=== PATIENT | male | born 1940 | race Caucasian/White ===

== ENCOUNTER 2017-03-15 20:22 | Inpatient (IN) ==
[2017-03-15] MEDS ORDERED: Albuterol 2.5 MG/3 ML NEBULIZER IH ONE (20:30)
[2017-03-15] MEDS ORDERED: methylPREDNISolone 125 MG/2 ML VIAL IVP ONE (20:30)
[2017-03-15] MEDS ORDERED: 0.9 % Sodium Chloride 500 ML IVC ONE (20:30)
[2017-03-15] MEDS ORDERED: Ipratropium/Albuterol Neb 3 ML IH ONE (20:30)
--- NOTE | 2017-03-15 20:34 | Emergency Department Note ---
Disposition Clinical Impression: Pneumonia Qualifiers: Pneumonia type: due to unspecified organism Laterality: right Lung location: lower lobe of lung Qualified Code(s): J18.1 - Lobar pneumonia, unspecified organism Rhabdomyolysis Qualifiers: Rhabdomyolysis type: non-traumatic Qualified Code(s): M62.82 - Rhabdomyolysis Disposition: Admitted As Inpatient Condition: Good Referrals: NO,PCP [Primary Care Provider] - Forms: ED Satisfaction Letter Time of Disposition: 22:36 Altered Mental Status HPI - General Chief Complaint: ED Altered Mental Status Stated Complaint: AMS Time Seen by Provider: 03/15/17 20:30 Source: EMS Mode of arrival: EMS Limitations: altered mental status Nursing Notes Reviewed: Yes Vital Signs Reviewed: Yes - History of Present Illness HPI Narrative: 76-year-old male transported by EMS after being found on the floor of his house at home. They were toned out for an unresponsive patient. When they arrived they found him awake and responsive. His speech is difficult to understand. His who was intoxicated reported that his mental status was different than his baseline. She did not come with the squad. On arrival here the patient's speech is difficult to understand, he is alert, he does not appear to have specific complaint. MD complaint: altered mental status Onset (ago): unknown Timing confirmed by: spouse Pain Severity: unable - Related Data Home Medications Medication Instructions Recorded Confirmed Simvastatin [Zocor] 20 mg PO HS 10/22/15 11/11/15 Albuterol Sulfate [Albuterol 180 mcg IH Q6HR PRN 11/11/15 11/11/15 Inhaler] Fluticasone Propionate Nasal 2 spr NS DAILY PRN 11/11/15 11/11/15 [Flonase] Oxygen 2 l NS AD 11/11/15 11/11/15 Allergies Allergy/AdvReac Type Severity Reaction Status Date / Time No Known Allergies Allergy Verified 10/20/15 10:32 Limitations: ROS unobtainable due to patients medical condition Past Medical History - Past Medical History Medical history: Reports: COPD, hyperlipidemia Surgical history: Reports: other Psychiatric history: Reports: no psych history - Social History Smoking Status: Current every day smoker Smokeless Tobacco Status: No Alcohol use: Reports: occasionally Drug use: Reports: none Physical Exam - General Limitations: altered mental status General appearance: alert, in no apparent distress - Head Head exam: atraumatic, normocephalic - Eye Eye exam: Present: PERRL, EOMI. Absent: scleral icterus, conjunctival injection - ENT ENT exam: normal oropharynx, mucous membranes moist, TM's normal bilaterally - Neck Neck exam: Present: normal inspection, full ROM, trachea midline. Absent: lymphadenopathy - Chest Chest inspection: Present: normal inspection, symmetric chest wall rise - Respiratory Respiratory exam: Present: wheezes (Mild bilateral expiratory), other ( Decreased breath sounds in both bases). Absent: respiratory distress - Cardiovascular Cardiovascular exam: Present: regular rate, normal rhythm, normal heart sounds - Abdominal Exam Abdominal exam: Present: soft, tenderness, guarding. Absent: distention, rebound Abdominal tenderness: Present: diffuse, mild - Extremities Exam Extremities exam: Absent: tenderness, pedal edema - Neurological Exam Neurological exam: Present: alert, other (Orientation cannot be tested, and his speech is not understandable. He appears to remedies symmetrically) - Psychiatric Psychiatric exam: Present: flat affect - Skin Skin exam: Present: warm, dry, other (Poor skin turgor. There is some erythema over the lateral right knee. There is some erythema in his upper back and lower midline lumbar spine.) Course Vital Signs Temperature 100.6 F H 03/15/17 20:23 Pulse Rate 92 03/15/17 20:23 Respiratory Rate 18 03/15/17 20:23 Blood Pressure 137/80 03/15/17 20:23 O2 Sat by Pulse Oximetry 92 03/15/17 20:23 Temperature 99.9 F H 03/15/17 22:20 Pulse Rate 101 03/15/17 22:20 Respiratory Rate 24 03/15/17 22:20 Blood Pressure 102/65 03/15/17 22:20 O2 Sat by Pulse Oximetry 94 03/15/17 22:20 Oxygen Delivery Oxygen Delivery Nasal Cannula Altered Mental Status - MDM Narrative Medical decision making narrative: Differential includes but is not limited to dehydration, sepsis, UTI, pneumonia , CVA, electrolyte abnormality, subdural Radiographically as pneumonia. He has no acute intracranial abnormality. No acute intra-abdominal pathology. He has a fever and a mildly elevated white blood cell count. His lactic acid is not elevated. IV fluids were initiated. IV antibiotics were initiated. He also had a mild to moderate elevation of his CPK which is consistent with some early or mild rhabdomyolysis. His creatinine is normal. I spoke to the hospitalist shailesh admitted. - Lab Data Lab results reviewed: Yes I reviewed the patient's lab results. Result diagrams: 03/15/17 20:43 03/15/17 20:43 Lab Results 03/15/17 03/15/17 03/15/17 Range/Units 20:43 20:43 20:43 WBC 12.1 H (4.3-11.1) K/mcL RBC 4.64 (4.19-5.50) M/mcL Hgb 14.4 (12.9-16.9) g/dL Hct 41.7 (37.5-50.1) % MCV 89.9 (83.0-100.0) fL MCH 31.0 (28.0-33.3) pg MCHC 34.5 (31.6-35.5) g/dL RDW 12.8 (11.5-14.5) % Plt Count 209 (140-400) K/mcL MPV 9.6 (9.4-12.4) fL Immature Gran % 0.3 (0-4) % Seg Neutrophils % 85.7 % Lymphocytes % 4.9 % Monocytes % 8.9 % Eosinophils % 0.0 % Basophils % 0.2 % Neutrophils # 10.4 H (1.6-8.9) K/mcL Lymphocytes # 0.6 (0.6-4.6) K/mcL Monocytes # 1.1 (0.0-1.3) K/mcL Eosinophils # 0.0 (0.0-0.6) K/mcL Basophils # 0.0 (0.0-0.2) K/mcL PT 13.5 H (9.4-12.1) Seconds INR 1.2 VBG Lactic Acid (0.5-2.2) mmol/L Sodium 141 (136-145) mEq/L Potassium 3.9 (3.5-4.5) mEq/L Chloride 104 (98-109) mEq/L Carbon Dioxide 24 (19-29) mEq/L BUN 21 (8-26) mg/dL Creatinine 0.81 (0.72-1.25) mg/dL Est GFR ( Amer) > 60 (> 60) Est GFR (Non-Af Amer) > 60 (> 60) BUN/Creatinine Ratio 26 (6-26) Glucose 92 (70-99) mg/dL Calculated Osmolality 295 (280-300) Calcium 9.3 (8.6-10.8) mg/dL Total Bilirubin 0.9 (0.2-1.2) mg/dL AST 47 H (5-34) Units/L ALT 23 (0-55) Units/L Alkaline Phosphatase 125 (38-126) Units/L Creatine Kinase 830 H (30-200) Units/L Troponin I (0-0.03) ng/mL Serum Total Protein 6.8 (6.0-8.3) g/dL Albumin 3.9 (3.5-5.0) g/dL Globulin 2.9 (2.4-3.5) g/dL Albumin/Globulin Ratio 1.3 (1.1-2.2) Urine Color (Yellow) Urine Clarity (Clear) Urine pH (5.0-8.0) pH Units Ur Specific Warren (1.010-1.025) Urine Protein (Neg-Trace) mg/dL Urine Glucose (UA) (Normal) mg/dL Urine Ketones (Negative) mg/dL Urine Blood (Negative) Urine Nitrite (Negative) Urine Bilirubin (Negative) Urine Urobilinogen (Normal) mg/dL Ur Leukocyte Esterase (Negative) Urine Microscopic RBC (0-3) per hpf Urine Microscopic WBC Urine Mucus (Few) Ur Culture Indicated? (NO) 03/15/17 03/15/17 03/15/17 Range/Units 20:43 20:43 21:45 WBC (4.3-11.1) K/mcL RBC (4.19-5.50) M/mcL Hgb (12.9-16.9) g/dL Hct (37.5-50.1) % MCV (83.0-100.0) fL MCH (28.0-33.3) pg MCHC (31.6-35.5) g/dL RDW (11.5-14.5) % Plt Count (140-400) K/mcL MPV (9.4-12.4) fL Immature Gran % (0-4) % Seg Neutrophils % % Lymphocytes % % Monocytes % % Eosinophils % % Basophils % % Neutrophils # (1.6-8.9) K/mcL Lymphocytes # (0.6-4.6) K/mcL Monocytes # (0.0-1.3) K/mcL Eosinophils # (0.0-0.6) K/mcL Basophils # (0.0-0.2) K/mcL PT (9.4-12.1) Seconds INR VBG Lactic Acid 1.7 (0.5-2.2) mmol/L Sodium (136-145) mEq/L Potassium (3.5-4.5) mEq/L Chloride (98-109) mEq/L Carbon Dioxide (19-29) mEq/L BUN (8-26) mg/dL Creatinine (0.72-1.25) mg/dL Est GFR ( Amer) (> 60) Est GFR (Non-Af Amer) (> 60) BUN/Creatinine Ratio (6-26) Glucose (70-99) mg/dL Calculated Osmolality (280-300) Calcium (8.6-10.8) mg/dL Total Bilirubin (0.2-1.2) mg/dL AST (5-34) Units/L ALT (0-55) Units/L Alkaline Phosphatase (38-126) Units/L Creatine Kinase (30-200) Units/L Troponin I 0.02 (0-0.03) ng/mL Serum Total Protein (6.0-8.3) g/dL Albumin (3.5-5.0) g/dL Globulin (2.4-3.5) g/dL Albumin/Globulin Ratio (1.1-2.2) Urine Color Dark Yellow (Yellow) Urine Clarity Slightly Cloudy A (Clear) Urine pH 5.0 (5.0-8.0) pH Units Ur Specific Warren 1.025 (1.010-1.025) Urine Protein Negative (Neg-Trace) mg/dL Urine Glucose (UA) Normal (Normal) mg/dL Urine Ketones 15 H (Negative) mg/dL Urine Blood Trace-lysed H (Negative) Urine Nitrite Negative (Negative) Urine Bilirubin Small H (Negative) Urine Urobilinogen Normal (Normal) mg/dL Ur Leukocyte Esterase Negative (Negative) Urine Microscopic RBC 0-3 (0-3) per hpf Urine Microscopic WBC Test Not Performed Urine Mucus Moderate H (Few) Ur Culture Indicated? NO (NO) - Radiology Data Radiology results reviewed: Yes I reviewed the patient's radiology results. ITS Impressions Abdomen/Pelvis CT 03/15/17 20:30 IMPRESSION: 1. Right lung base opacities suspicious for pneumonia. 2. No acute findings are identified within the abdomen and pelvis. 3. Left inguinal hernia containing portion of sigmoid colon without bowel obstruction. 4. Emphysema. D/ : / 03/15/2017 22:27:49 Layo Cano MD / ana Interpreting Provider: Layo Cano MD Chest X-Ray 03/15/17 20:30 IMPRESSION: 1. Opacity in right lung base suspicious for pneumonia. 2. Hyperinflation suggestive of COPD. D/ / 03/15/2017 21:31:11 Layo Cano MD / ana Interpreting Provider: Layo Cano MD Head CT 03/15/17 20:30 IMPRESSION: 1. Limited study due to motion. No gross acute intracranial abnormality. 2. Chronic small vessel ischemic disease. D/ / 03/15/2017 22:24:37 Layo Cano MD / ana Interpreting Provider: Layo Cano MD - EKG Data EKG attestation: Yes I reviewed and interpreted this EKG. EKG results narrative: His tachycardia, rate 109, T-wave flattening inferior lateral, possible ischemia , severe artifact, rhythm strip shows a sinus rhythm with a rate of 109, IA interval 157 ms, QRS of 90 as interpreted by me. TPA Checklist - LKW: 3-4.5 hrs Add. Contraindications Patient/family understanding: The patient/family members have been counseled and understood the risk, benefit , and alternatives of treatment.
[2017-03-15 20:55] LABS: Basophils % 0.2 %; Hematocrit 41.7 % (37.5-50.1); Hemoglobin 14.4 g/dL (12.9-16.9); Immature Granulocytes % 0.3 % (0-4); Lymphocytes # 0.6 K/mcL (0.6-4.6); Lymphocytes % 4.9 %; Mean Corpuscular HGB Conc 34.5 g/dL (31.6-35.5); Mean Corpuscular Volume 89.9 fL (83.0-100.0); Mean Platelet Volume 9.6 fL (9.4-12.4); Monocytes # 1.1 K/mcL (0.0-1.3); Monocytes % 8.9 %; Neutrophils # 10.4 K/mcL (1.6-8.9); Platelet Count 209 K/mcL (140-400); Red Blood Count 4.64 M/mcL (4.19-5.50); Red Cell Distribution Width 12.8 % (11.5-14.5); Segmented Neutrophils % 85.7 %
[2017-03-15 20:56] LABS: INR 1.2; Prothrombin Time 13.5 Seconds (9.4-12.1)
[2017-03-15 21:09] LABS: Alanine Aminotransferase 23 Units/L (0-55); Albumin 3.9 g/dL (3.5-5.0); Albumin/Globulin Ratio 1.3 (1.1-2.2); Alkaline Phosphatase 125 Units/L (38-126); Aspartate Amino Transferase 47 Units/L (5-34); BUN/Creatinine Ratio 26 (6-26); Bilirubin,Total 0.9 mg/dL (0.2-1.2); Blood Urea Nitrogen 21 mg/dL (8-26); Calcium 9.3 mg/dL (8.6-10.8); Carbon Dioxide 24 mEq/L (19-29); Chloride 104 mEq/L (98-109); Creatine Kinase 830 Units/L (30-200); Globulin 2.9 g/dL (2.4-3.5); Glucose 92 mg/dL (70-99); Osmolality,Calculated 295 (280-300); Potassium 3.9 mEq/L (3.5-4.5); Sodium 141 mEq/L (136-145); Total Protein 6.8 g/dL (6.0-8.3); eGFR For African Americans > 60 (> 60); eGFR For Non-African Americans > 60 (> 60)
[2017-03-15] MEDS ORDERED: Azithromycin 500 MG in D5% in Water 250 ML IVPB ONE (21:40)
[2017-03-15 21:55] LABS: Bilirubin,Urine Small (Negative); Blood,Urine Trace-lysed (Negative); Clarity,Urine Slightly Cloudy (Clear); Color,Urine Dark Yellow (Yellow); Glucose,Urine (UA) Normal (Normal); Ketones,Urine 15 mg/dL (Negative); Leukocyte Esterase,Urine Negative (Negative); Nitrite,Urine Negative (Negative); Protein,Urine Negative (Neg-Trace); Specific Gravity,Urine 1.025 (1.010-1.025); Urobilinogen,Urine Normal (Normal)
[2017-03-15 22:02] LABS: Mucus,Urine Moderate (Few); RBC,Urine 0-3 per hpf (0-3)
[2017-03-16] MEDS ORDERED: Naloxone 0.4 MG/ML INJ IVP PRN (00:01)
[2017-03-16] MEDS: 0.9 % Sodium Chloride 1,000 ML IVC SCH ×2 (00:35→07:00)
[2017-03-16] MEDS ORDERED: Albuterol 2.5 MG/3 ML NEBULIZER IH PRN (03:14)
[2017-03-16 06:21] LABS: BUN/Creatinine Ratio 21 (6-26); Blood Urea Nitrogen 16 mg/dL (8-26); Calcium 8.5 mg/dL (8.6-10.8); Carbon Dioxide 21 mEq/L (19-29); Chloride 109 mEq/L (98-109); Glucose 148 mg/dL (70-99); Osmolality,Calculated 296 (280-300); Potassium 3.9 mEq/L (3.5-4.5); Sodium 141 mEq/L (136-145); eGFR For African Americans > 60 (> 60); eGFR For Non-African Americans > 60 (> 60)
[2017-03-16] MEDS: *HR* Enoxaparin 30 MG/0.3 ML SYRINGE SQ SCH (06:59)
--- NOTE | 2017-03-16 10:19 | Electrocardiograph Report ---
[address] [place], [place] [address] Test Date: 2017-03-15 Pat Name: Femi Ivory Department: 9201 Room: [facility] Gender: M Manager Talent: [id number] : 1940 Requested By: Titi Javier Order Number: [id number] Reading MD: Apolonia Lundberg Measurements Intervals Reynolds Rate: 109 P: 85 MD: 157 QRS: 56 QRSD: 92 T: 117 QT: 343 QTc: 407 Interpretive Statements SINUS TACHYCARDIA WITH OCCASIONAL SUPRAVENTRICULAR PREMATURE COMPLEXES POSSIBLE RIGHT VENTRICULAR CONDUCTION DELAY ST DEVIATION AND MODERATE T-WAVE ABNORMALITY, CONSIDER INFERIOR ISCHEMIA Electronically Signed On 03-16-2017 10:17:54 EDT by Apolonia Lundberg
--- NOTE | 2017-03-16 11:24 | Internal Med History&Physical ---
Date of Encounter: 03/16/17 Time of Encounter: 10:50 Assessment and Plan (1) Pneumonia Current visit: Yes Status: Acute He has been started on Rocephin and Zithromax. I have ordered lactobacillus. Further workup will be done as needed. Qualifiers: Pneumonia type: due to unspecified organism Laterality: right Lung location: lower lobe of lung Qualified Code(s): J18.1 - Lobar pneumonia, unspecified organism (2) COPD (chronic obstructive pulmonary disease) Current visit: No Status: Chronic Presumed. He reported he started smoking at age 15. He has oxygen at home. Qualifiers: COPD type: unspecified COPD Qualified Code(s): J44.9 - Chronic obstructive pulmonary disease, unspecified (3) Fall Current visit: Yes Status: Acute Suspect multifactorial etiology. He admits he drinks alcohol most days. Will order PT and OT evaluation. Check orthostatic vital signs in a.m. Qualifiers: Encounter type: initial encounter Qualified Code(s): W19.XXXA - Unspecified fall, initial encounter Internal Medicine - H&P: HPI Chief complaint: Fall, Altered mental status Admitted From: Home Plans for Post Hospital Care: Home History of present illness: Mr. Ivory is a 76 year old male who was brought by squad to emergency room after he was found on the floor of his house at home. His apparently called the squad after she noted his mental status was different from baseline. He is a very poor historian and cannot give any reliable history. He was evaluated in emergency room and noted to have speech difficult understand and right lower lobe pneumonia. He was admitted to [facility] floor for ongoing care needs. Past Med Surg Social Fam HX - Past Medical History Medical history: COPD, hyperlipidemia Psychiatric history: no psych history - Past Surgical History Surgical History: other - Social History Smoking Status: Current every day smoker Smokeless Tobacco Status: No Alcohol use: occasionally Drug use: none Internal Medicine - H&P: Meds Simvastatin [Zocor] 20 mg PO HS 10/22/15 [History] Albuterol Sulfate [Albuterol Inhaler] 180 mcg IH Q6HR PRN 11/11/15 [History] Fluticasone Propionate Nasal [Flonase] 2 spr NS DAILY PRN 11/11/15 [History] Oxygen 2 l NS AD 11/11/15 [History] Allergies No Known Allergies Allergy (Verified 10/20/15 10:32) All Systems PM: A 10-system review of systems was performed and is negative for pertinent findings except as documented above in the HPI. Review of systems: Unobtainable from the patient - Constitutional Vitals: Temp Pulse Resp BP Pulse Ox 98.1 F 71 18 109/66 93 03/16/17 06:44 03/16/17 06:44 03/16/17 06:44 03/16/17 06:44 03/16/17 06:44 Exam: Gen.: He is a well-developed well-nourished male lying in bed who appears in no acute distress at present time HEENT: Head is atraumatic and normocephalic. Eyes: EOMI. There is no scleral icterus. Mouth: Mucosa is moist. Neck: Supple and nontender. There is no thyromegaly or adenopathy noted. Heart: Regular without murmurs gallops or ectopics. Lungs: No wheezes or crackles are heard. He has egophony in the right lower lung and left mid and upper lung posteriorly Abdomen: Bowel sounds are present. The abdomen is firm and he does not allow deep palpation. There does not appear to be tenderness or guarding however. Extremities: There is no cyanosis edema or clubbing noted. Dorsalis pedis and posttibial pulses are 1-2 over 2 bilaterally. Neurologic: Mental status: He is awake but is unable to answer most questions reliably. Cranial nerves: Smile is symmetric. Forehead wrinkles bilaterally. Tongue protrudes midline. EOMI. Motor: There is no pronator drift. Cerebellar : He does not understand the command to do finger to nose testing. No further neurologic testing is attempted. Skin: Warm and dry Internal Med - H&P Results - Labs CBC & Chem 7: 03/15/17 20:43 03/16/17 05:52 Labs: BMP 03/16/17 05:52 Sodium 141 Potassium 3.9 Chloride 109 Carbon Dioxide 21 BUN 16 Creatinine 0.78 Glucose 148 H Calcium 8.5 L
[2017-03-16] MEDS: 0.45 % Sodium Chloride w/KCl 20 MEQ/1,000 ML MLS IVC SCH (11:39)
[2017-03-16] MEDS: Lactobacillus 1 EACH CAP.SPRINK PO SCH (23:03)
[2017-03-17] MEDS: 0.45 % Sodium Chloride w/KCl 20 MEQ/1,000 ML MLS IVC SCH (00:49)
[2017-03-17] MEDS: Azithromycin 500 MG in D5% in Water 250 ML IVPB SCH ×2 (01:30→23:21)
[2017-03-17] MEDS: *HR* Enoxaparin 30 MG/0.3 ML SYRINGE SQ SCH (05:59)
[2017-03-17 06:06] LABS: Basophils % 0.1 %; Hematocrit 40.2 % (37.5-50.1); Hemoglobin 13.4 g/dL (12.9-16.9); Immature Granulocytes % 0.4 % (0-4); Lymphocytes % 9.2 %; Mean Corpuscular HGB Conc 33.3 g/dL (31.6-35.5); Mean Corpuscular Hemoglobin 30.5 pg (28.0-33.3); Mean Corpuscular Volume 91.6 fL (83.0-100.0); Mean Platelet Volume 10.2 fL (9.4-12.4); Monocytes # 0.9 K/mcL (0.0-1.3); Neutrophils # 8.9 K/mcL (1.6-8.9); Platelet Count 168 K/mcL (140-400); Red Blood Count 4.39 M/mcL (4.19-5.50); Red Cell Distribution Width 13.1 % (11.5-14.5); Segmented Neutrophils % 82.3 %
[2017-03-17] MEDS: Lactobacillus 1 EACH CAP.SPRINK PO SCH ×2 (08:50→21:07)
--- NOTE | 2017-03-17 09:50 | Internal Med Progress Note ---
Date of Encounter: 03/17/17 Time of Encounter: 09:40 - Assessment and plan (1) Pneumonia Current Visit: Yes Status: Acute Assessment and plan: March 17. Continue Rocephin, Zithromax, and lactobacillus. Anticipate discharge home tomorrow. Qualifiers: Pneumonia type: due to unspecified organism Laterality: right Lung location: lower lobe of lung Qualified Code(s): J18.1 - Lobar pneumonia, unspecified organism (2) COPD (chronic obstructive pulmonary disease) Current Visit: No Status: Chronic Assessment and plan: March 17. Presumed. Continue treatment for pneumonia. He has home oxygen. Qualifiers: COPD type: unspecified COPD Qualified Code(s): J44.9 - Chronic obstructive pulmonary disease, unspecified (3) Fall Current Visit: Yes Status: Acute Assessment and plan: March 17. He admits to drinking up to a six-pack of beer daily. Continue therapy intervention. Orthostatic vital signs have not yet been recorded. Qualifiers: Encounter type: initial encounter Qualified Code(s): W19.XXXA - Unspecified fall, initial encounter - Subjective Interval history: March 17. He has no new complaints and feels better. - Constitutional Vitals: Temp Pulse Resp BP Pulse Ox 97.6 F 86 18 111/68 96 03/17/17 06:28 03/17/17 06:28 03/17/17 06:28 03/17/17 06:28 03/17/17 06:28 Exam: He has resting comfortably in bed. His conversation is more appropriate and speech is more understandable. Lungs show no wheezing. Extremities show no edema. I reviewed his medications and lab results. Internal Medicine: Result - Labs CBC & Chem 7: 03/17/17 05:45 03/16/17 05:52 Labs: Short CBC 03/17/17 Range/Units 05:45 WBC 10.8 (4.3-11.1) K/mcL Hgb 13.4 (12.9-16.9) g/dL Hct 40.2 (37.5-50.1) % Plt Count 168 (140-400) K/mcL Neutrophils # 8.9 (1.6-8.9) K/mcL - ABG Interpretation ABG results: PT/INR, D-dimer PT 13.5 Seconds (9.4-12.1) H 03/15/17 20:43 Consult Discharge Plan - Plan Referrals: NO,PCP [Primary Care Provider] - 1 week
--- NOTE | 2017-03-17 15:21 | Electrocardiograph Report ---
[place] [id number] Test Date: 2017-03-15 Pat Name: Femi Ivory Department: 9201 Room: [facility] Gender: M Food Service Attendant: [id number] : 1940 Requested By: Ben Zelaya Order Number: [id number] Reading MD: Wilton Lundberg Measurements Intervals Adrian Rate: 103 P: 79 IL: 152 QRS: 77 QRSD: 78 T: 75 QT: 351 QTc: 410 Interpretive Statements SINUS TACHYCARDIA WITH OCCASIONAL SUPRAVENTRICULAR PREMATURE COMPLEXES NONSPECIFIC ST \T\ T-WAVE ABNORMALITY SIGNIFICANT ARTIFACT Electronically Signed On 03-17-2017 15:20:03 EDT by Wilton Lundberg
[2017-03-18] MEDS: *HR* Enoxaparin 30 MG/0.3 ML SYRINGE SQ SCH (06:48)
[2017-03-18] MEDS: Lactobacillus 1 EACH CAP.SPRINK PO SCH ×2 (08:54→22:17)
--- NOTE | 2017-03-18 16:05 | Internal Med Progress Note ---
Date of Encounter: 03/18/17 Time of Encounter: 15:55 - Assessment and plan (1) Pneumonia Current Visit: Yes Status: Acute Assessment and plan: March 17. Continue Rocephin, Zithromax, and lactobacillus. Anticipate discharge home tomorrow. March 18. Continue antibiotics and lactobacillus. hvac services professional has arranged for probable discharge to [facility] tomorrow. Qualifiers: Pneumonia type: due to unspecified organism Laterality: right Lung location: lower lobe of lung Qualified Code(s): J18.1 - Lobar pneumonia, unspecified organism (2) COPD (chronic obstructive pulmonary disease) Current Visit: No Status: Chronic Assessment and plan: March 17. Presumed. Continue treatment for pneumonia. He has home oxygen. Qualifiers: COPD type: unspecified COPD Qualified Code(s): J44.9 - Chronic obstructive pulmonary disease, unspecified (3) Fall Current Visit: Yes Status: Acute Assessment and plan: March 17. He admits to drinking up to a six-pack of beer daily. Continue therapy intervention. Orthostatic vital signs have not yet been recorded. Qualifiers: Encounter type: initial encounter Qualified Code(s): W19.XXXA - Unspecified fall, initial encounter - Subjective Interval history: March 17. He has no new complaints and feels better. March 18. He has no new complaints. - Constitutional Vitals: Temp Pulse Resp BP Pulse Ox 97.1 F L 60 16 115/64 91 03/18/17 15:50 03/18/17 15:50 03/18/17 15:50 03/18/17 15:50 03/18/17 15:50 Exam: He is sitting in a chair resting comfortably at bedside. His affect is bright and cheerful. Heart is regular without murmurs gallops or ectopics. Lungs are clear. Extremities show no edema. I reviewed his medications and lab results. Internal Medicine: Result - Labs CBC & Chem 7: 03/17/17 05:45 03/16/17 05:52 - ABG Interpretation ABG results: PT/INR, D-dimer PT 13.5 Seconds (9.4-12.1) H 03/15/17 20:43 Consult Discharge Plan - Plan Referrals: NO,PCP [Primary Care Provider] - 1 week
[2017-03-18] MEDS: Azithromycin 500 MG in D5% in Water 250 ML IVPB SCH (22:21)
[2017-03-18] MEDS ORDERED: *HR* LORazepam 2 MG/ML VIAL IVP PRN (22:52)
[2017-03-19] MEDS: *HR* Enoxaparin 30 MG/0.3 ML SYRINGE SQ SCH (05:51)
[2017-03-19 07:02] VITALS: BP 113/75
[2017-03-19] MEDS: Lactobacillus 1 EACH CAP.SPRINK PO SCH (08:33)
--- NOTE | 2017-03-19 09:18 | Discharge Summary ---
Date of Encounter: 03/19/17 Time of Encounter: 09:05 - Discharge Diagnosis (1) Pneumonia Priority: Primary Status: Acute Qualifiers: Pneumonia type: due to unspecified organism Laterality: right Lung location: lower lobe of lung Qualified Code(s): J18.1 - Lobar pneumonia, unspecified organism (2) COPD (chronic obstructive pulmonary disease) Priority: Secondary Status: Chronic Qualifiers: COPD type: unspecified COPD Qualified Code(s): J44.9 - Chronic obstructive pulmonary disease, unspecified (3) Fall Priority: Secondary Status: Acute Qualifiers: Encounter type: initial encounter Qualified Code(s): W19.XXXA - Unspecified fall, initial encounter - Discharge Medications Prescriptions: Cefuroxime PO [Ceftin] 500 mg PO Q12HR 3 Days Azithromycin [Zithromax] 250 mg PO DAILY 3 Days Lactobacillus [Culturelle] 1 each PO BID 3 Days Home Medications: Simvastatin [Zocor] 20 mg PO HS 10/22/15 [History] Fluticasone Propionate Nasal [Flonase] 2 spr NS DAILY PRN 11/11/15 [History] Oxygen 2 l NS AD 11/11/15 [History] Albuterol Sulfate [Albuterol Inhaler] 180 mcg IH Q4H PRN #0 03/19/17 [Rx] Azithromycin [Zithromax] 250 mg PO DAILY 3 Days 03/19/17 [Rx] Cefuroxime PO [Ceftin] 500 mg PO Q12HR 3 Days 03/19/17 [Rx] Lactobacillus [Culturelle] 1 each PO BID 3 Days 03/19/17 [Rx] Allergies/Adverse Reactions: Allergies No Known Allergies Allergy (Verified 10/20/15 10:32) Date of admission: 03/16/17 17:11 Primary care physician: PCP NO - Patient Status Disposition: Transfer SNF Condition: Good Functional capacity at discharge: uses cane/walker Overall status at discharge: patient is progressing back to baseline - Discharge Instructions - Diet and Activity Activity: as per physical therapy Diet: advance to your usual diet Hospital course: Mr. Ivory is a 76 year old male who was brought by squad to emergency room after he was found on the floor of his house at home. His apparently called the squad after she noted his mental status was different from baseline. He is a very poor historian and cannot give any reliable history. He was evaluated in emergency room and noted to have speech difficult understand and right lower lobe pneumonia. He was admitted to [facility] for ongoing care needs. Initial orders were written by the emergency room physician. I saw him on March 16 and performed the history and physical. He was started on Rocephin, Zithromax, and lactobacillus. He had clinical improvement with normalization of WBC by March 17 and improvement in the left shift on the differential. B12 and TSH were normal at 322 and 1.931 respectively. He had improvement in his mental status and was able to carry on appropriate conversation by the day of discharge. Social service consult was made and it was felt the patient would benefit from placement at [facility] for rehabilitation therapy and possible longer-term placement. He will follow with me there. - Time Spent with Patient Total time spent providing and/or coordinating discharge services: - Constitutional Vitals: Temp Pulse Resp BP Pulse Ox 97.8 F 65 18 113/75 98 03/19/17 06:55 03/19/17 06:55 03/19/17 06:55 03/19/17 06:55 03/19/17 06:55
--- NOTE | 2017-03-19 09:33 | Physician Discharge Referral ---
[facility] Referral Info Transfer To: [facility] Provider in Charge: Garcia Provider in Charge after Transfer: PCP Ngoc) - Diagnosis (1) Pneumonia Priority: Primary Status: Acute (2) COPD (chronic obstructive pulmonary disease) Priority: Secondary Status: Chronic (3) Fall Priority: Secondary Status: Acute Prognosis: Fair Aware of Diagnosis: Patient Aware of Prognosis: Patient - Transfer Medications Prescriptions: Cefuroxime PO [Ceftin] 500 mg PO Q12HR 3 Days Azithromycin [Zithromax] 250 mg PO DAILY 3 Days Lactobacillus [Culturelle] 1 each PO BID 3 Days Home Medications: Simvastatin [Zocor] 20 mg PO HS 10/22/15 [History] Fluticasone Propionate Nasal [Flonase] 2 spr NS DAILY PRN 11/11/15 [History] Oxygen 2 l NS AD 11/11/15 [History] Albuterol Sulfate [Albuterol Inhaler] 180 mcg IH Q4H PRN #0 03/19/17 [Rx] Azithromycin [Zithromax] 250 mg PO DAILY 3 Days 03/19/17 [Rx] Cefuroxime PO [Ceftin] 500 mg PO Q12HR 3 Days 03/19/17 [Rx] Lactobacillus [Culturelle] 1 each PO BID 3 Days 03/19/17 [Rx] Allergies/Adverse Reactions: Allergies No Known Allergies Allergy (Verified 10/20/15 10:32) - Respiratory Orders Oxygen / L per min (2 L/m by nasal cannula when necessary to keep sats greater than 89%) Smoking Cessation: Smoking cessation has been advised. For more information, call the [place] Tobacco Quit Line at 6-937-FAQA-NOW. - Rehabiliation Orders Rehab Potential: Fair Rehab Orders: Evaluation for Physical Therapy, Evaluation for Occupational Therapy - Diet Orders Regular CERTIFICATION: I certify that the transfer of the above named patient to an Extended Care Facility is necessary for the continuing treatment of the diagnosis listed. The above information is true and accurate reflection of patient's current condition. Confidential - Redisclosure prohibited without a patient's written consent.
== END 2017-03-19 11:01 | DRG 194 ==
LOC: INPPIK 20:22 → EMEROOPIK 20:22 → INPPIK 23:51
PROVIDERS: ADMIT Internal Medicine; ATTEND Internal Medicine